=== PATIENT | female | born 1975 | race Caucasian/White ===

== ENCOUNTER 2017-11-13 14:42 | Emergency (ER) | payer OTHER ==
[2017-11-13 15:10] VITALS: BP 115/78
[2017-11-13 15:48] LABS: Basophils % (Auto) 0.7 % (0.0-1.8); Eosinophils % (Auto) 0.9 % (0.0-4.3); Hematocrit 37.6 % (30.3-42.9); Mean Corpuscular HGB Conc 32 % (30-34); Mean Corpuscular Hemoglobin 27 pg (28-32); Mean Corpuscular Volume 85 fl (79-97); Platelet Count 364 K/mm3 (140-440); Red Blood Count 4.42 M/mm3 (3.65-5.03); Red Cell Distribution Width 15.6 % (13.2-15.2); White Blood Count 5.8 K/mm3 (4.5-11.0)
[2017-11-13 15:53] LABS: Bacteria,Urine 1+ /HPF (Negative); Bilirubin,Urine NEG (Negative); Blood,Urine SM (Negative); Ketones,Urine NEG (Negative); Leukocyte Esterase,Urine NEG (Negative); Mucus,Urine FEW /HPF; Nitrite,Urine NEG (Negative); Protein,Urine <15 mg/dL mg/dL (Negative); Urobilinogen,Urine < 2.0 mg/dL (<2.0)
[2017-11-13 16:07] LABS: Anion Gap 19 mmol/L; BUN/Creatinine Ratio 15; Blood Urea Nitrogen 9 mg/dL (7-17); Calcium 8.7 mg/dL (8.4-10.2); Carbon Dioxide 23 mmol/L (22-30); Chloride 99.6 mmol/L (98-107); Glucose 336 mg/dL (65-100); Potassium 4.1 mmol/L (3.6-5.0); Sodium 137 mmol/L (137-145)
== END 2017-11-13 17:50 | disposition left against medical advice (07) ==
LOC: ED 14:42
DX: R11.2 Nausea with vomiting, unspecified (principal); Z53.21 Procedure and treatment not carried out due to patient leaving prior to being seen by health care provider
CPT/HCPCS: 36415; 80048; 81001; 84703; 85025